=== PATIENT | female | born 1985 | race Hispanic/Latino ===

== ENCOUNTER 2020-02-09 21:19 | Emergency (ER) | payer BC ==
[2020-02-09] MEDS ORDERED: SILVER NITRATE APPLICATOR 1 SWAB TP ONE ×2 (21:43→21:45)
== END 2020-02-09 22:05 | disposition home or self-care (01) ==
LOC: EDH 21:19
DX: S91.102A Unspecified open wound of left great toe without damage to nail, initial encounter (principal); Z90.49 Acquired absence of other specified parts of digestive tract; X58.XXXA Exposure to other specified factors, initial encounter; Y93.89 Activity, other specified; Y92.89 Other specified places as the place of occurrence of the external cause; Y99.8 Other external cause status
CPT/HCPCS: 99282

== ENCOUNTER → 2022-10-22 | Outpatient (CLI) | payer BC | END | disposition home or self-care (01) | LOC: RAH 14:00 | PROVIDERS: ATTEND Family Medicine | DX: I11.9 Hypertensive heart disease without heart failure (principal) | CPT/HCPCS: 93306 ==